=== PATIENT | male | born 1990 | race Caucasian/White ===

== ENCOUNTER → 2020-07-20 16:12 | Outpatient (CLI) | payer MEDICAID, SELFPAY ==
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
== END ==
PROVIDERS: PCP Family Medicine; Referring Provider Family Medicine; Visit Provider Family Medicine
DX: S89.91XS Unspecified injury of right lower leg, sequela (principal); S99.911S Unspecified injury of right ankle, sequela
CPT/HCPCS: 73564; 73610